=== PATIENT | female | born 1955 | race Caucasian/White ===

== ENCOUNTER → 2016-10-28 | Outpatient (CLI) | payer MEDICARE ==
[~2016-10-28] MED LIST: ASCO-262 PO; BUDE10.2 IH; BUPR-42 PO; CA C1TAB80 PO; CALC600T12 PO; CHOL100045 PO; CHOL200059 PO; CTLP20T; CYAN1TAB26 PO; CYAN250014 PO; CYCL10TA45; CYCL5TAB PO; DICY10CA26; DULO30CA; DULO30CA3 PO; ESZO2TAB4 PO; FOLI1TAB57 PO; FRSM40T; HYDR-32; LEVO150T54; LEVO175T5 PO; LEVO200T30; MILN100T PO; NAPR250T34; NF-CYM60C; NORCO; OMEP20TA7 PO; ONDA4TAB10 PO; OXB5T; OXYB10TA; OXYC5SOL19 PO; PANT40TA3 PO; POLY119P; PREG50C; ROPI1TAB40 PO; RPN.25T; TIOT18CA2 IH; TRAMADOL; TRM50T; TRZ100T; VITAMIN B12 PO
--- OUTSIDE RECORDS SUMMARY | 2016-10-28 11:19 | XMS REPORT | Continuity of Care Document ---
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 If you do not see the information that you expected, contact Release of Information in the Health Information Management department at [phone] for further assistance in locating additional records.[facility] Active Allergies and Adverse Reactions Allergen Noted Date Severity Reactions Comments Morphine 11/20/2011 RASH, ITCHING Only oral morphine Sulfa (Sulfonamide 11/20/2011 RASH Antibiotics) Current Medications Prescription Sig. Disp. Refills Start End Date Status Date gabapentin (NEURONTIN) Take 600 mg by mouth Active 300 mg capsule three times daily. DULoxetine DR (CYMBALTA) Take 60 mg by mouth Active 60 mg capsule daily. DULoxetine DR (CYMBALTA) Take 30 mg by mouth at Active 30 mg capsule bedtime daily. ranitidine(+) (ZANTAC) Take 150 mg by mouth Active 150 mg tablet twice daily. darifenacin(+) (ENABLEX) Take 15 mg by mouth at Active 15 mg tablet bedtime daily. levothyroxine (SYNTHROID) Take 150 mcg by mouth Active 150 mcg tablet daily. dicyclomine (BENTYL) 10 Take 10 mg by mouth three Active mg capsule times daily as needed. hydrOXYzine (ATARAX) 25 Take 25 mg by mouth every Active mg tablet 6 hours. ropinirole (REQUIP) 1 mg Take 1 mg by mouth at Active tablet bedtime daily. buPROPion XL (+) Take 150 mg by mouth Active (WELLBUTRIN XL) 150 mg daily. tablet Milnacipran (SAVELLA) 25 Take 25 mg by mouth twice Active mg Tab daily. meclizine (ANTIVERT) 25 Take 25 mg by mouth three Active mg tablet times daily as needed. fluticasone (FLONASE) 50 Insert 2 Sprays into nose Active mcg/actuation nasal spray as directed daily. azithromycin (ZITHROMAX) Take 500 mg by mouth Active 500 mg tablet daily. meloxicam(+) (MOBIC) 7.5 Take 1 Tab by mouth 90 Tab 3 11/20/19 Active mg tablet daily. 12 ergocalciferol (VITAMIN Take 1 Cap by mouth every 12 Cap 0 11/28/19 Active D-2) 50,000 unit capsule 7 days. 12 cholecalciferol (Vitamin Take 2 Tabs by mouth 90 Tab 3 11/28/19 Active D3) (VITAMIN D-3) 1,000 daily. 12 unit Tab tablet Active Problems Problem Noted Date Polyarthralgia 11/20/2011 Osteoarthritis 11/20/2011 Chronic urticaria 11/20/2011 Overview: 11-20-11 BOB (Chronic Urticaria Index) nml. Fatigue 11/20/2011 Fibromyalgia 11/20/2011 Hypovitaminosis D 11/20/2011 Overview: 11-21-11. 11.0 with 30-80 being nml. Fractured fibula 11/20/2011 Overview: Bilateral, distally, nonunited. History of total knee arthroplasty 11/20/2011 Overview: Bilateral. Presumptively for OA. Degenerative disc disease, cervical 11/20/2011 Social History Tobacco Use Types Packs/Day Years Used Date Current Every Day Smoker Cigarettes 0.3 Smokeless Tobacco: Never Used Alcohol Use Drinks/Week oz/Week Comments Yes 1 Standard 0.5 drinks 6-7 drinks on rare occasionas. drinks or equivalent Last Filed Vital Signs Vital Sign Reading Time Taken Blood Pressure 133/89 11/20/2011 8:22 AM CDT Pulse 79 11/20/2011 8:22 AM CDT Temperature 36.3 C (97.4 F) 11/20/2011 8:22 AM CDT Respiratory Rate 18 11/20/2011 8:22 AM CDT Height 1.643 m (5' 4.69") 11/20/2011 8:22 AM CDT Weight 127.642 kg (281 lb 6.4 11/20/2011 8:22 AM CDT oz) Body Mass Index 47.28 11/20/2011 8:22 AM CDT Oxygen Saturation - - Plan of Care Health Maintenance Due Date Last Done Comments Physical (Comprehensive) 1960 Exam Pertussis Vaccine 1964 Tetanus Vaccine 1970 Cervical Cancer Screening 1974 Breast Cancer Screening 1993 Colorectal Cancer 2003 Screening Shingles Vaccine 2013 Influenza Vaccine 04/24/2016 Results from Last 3 Months Not on file
--- NOTE | 2016-10-29 13:15 | Diagnostic Imaging Report ---
EXAMINATION: PET/CT. INDICATION: Lung cancer. TECHNIQUE: PET/CT imaging was obtained from the base of the skull through the pelvis after the administration of 14.7 mCi of F-[address] imaging was utilized for localization and attenuation correction purposes. The low energy CT utilized for attenuation correction is not considered to be of high enough spatial resolution to allow in and of itself a separate anatomical analysis. COMPARISON: There are no previous PET/CT examinations or cross-sectional imaging studies available for comparison. The plain film examination of the chest performed on 06/18/2016 noted cardiomegaly and chronic changes involving the left lung base. FINDINGS: On the CT images of this exam however, there is a 0.9 x 1.2 cm noncalcified nodule in the periphery of the right lung base. There are also two similar sized nodular densities in the left lung base near the diaphragm. Even in retrospect, these nodular densities were difficult to identify on the previous chest exam. These nodules do not appear to be hypermetabolic however. The nodule in the periphery of the right midlung shows the greatest intensity and has a maximum SUV of only 1.6. Consequently, these are most likely benign. Even so, I would recommend a that short-term (three-month) followup CT chest exam be performed for further study. There is no other hypermetabolic activity identified within the thorax to suggest malignancy. In the region of the left iliac chain, there is a small focal area of intense hypermetabolic activity. This has a maximum SUV of 7.4. However, there is no corresponding soft tissue mass in this area. Consequently, this abnormal uptake is of uncertain etiology. I would recommend that when the patient has the three-month followup CT chest exam, that the abdomen and pelvis be included for further evaluation of this area. There is no other hypermetabolic activity evident within the abdomen to suggest the presence of neoplasm. There are postsurgical changes involving the stomach and the gallbladder is surgically absent. The uterus is not visualized and is most likely surgically absent as well. In addition, the patient has had a prior fusion of L4, L5 and S1. Thyroid gland is prominent but shows symmetrical hypermetabolic activity. IMPRESSION: 1. There are three roughly 1 cm pulmonary nodules involving the lung bases. These are not hypermetabolic and consequently not certain to be related to malignancy. Even so, a short-term (three-month) followup CT chest exam would be recommended. 2. A followup CT abdomen and pelvis exam in three months should also be obtained for further evaluation of the hypermetabolic area in the left iliac chain. 3. There is no acute abnormality identified. These results were discussed with Dr. Arturo Galaviz. Dictated by: Dictated on workstation # [id number]
== END ==
LOC: RAD 11:15
PROVIDERS: ATTEND Internal Medicine Critical Care Medicine
DX: R91.8 Other nonspecific abnormal finding of lung field (principal)